=== PATIENT | female | born 1940 | race Caucasian/White ===

== ENCOUNTER 2019-11-15 18:21 | Emergency (ER) | payer MEDICARE, OTHER ==
--- NOTE | 2019-11-15 18:48 | EDM.PDOC ---
ED HPI GENERAL MEDICAL PROBLEM - General Chief Complaint: General Stated Complaint: ER Time Seen by Provider: 11/15/19 18:35 Source of Information: Reports: Patient, Halfway Records History Limitations: Reports: No Limitations - History of Present Illness INITIAL COMMENTS - FREE TEXT/NARRATIVE: Patient presents to ER with complaints of right flank pain. STarted 2 days ago and has progressively been worsening. She reports has been receiving Tylenol for discomfort but not getting much relief for that. Had low grade temp. Has mild nausea, small emesis. Did eat earlier today. Denies chest pain, shortness of breath. No constipation. Had loose stools yesterday. Denies history of kidney stones. Does have history of UTIs. Has been at the [facility] since last fall due to weakness. Onset: Gradual Duration: Day(s): Location: Reports: Abdomen, Back Quality: Reports: Ache Severity: Severe Improves with: Reports: None Associated Symptoms: Reports: Fever/Chills, Nausea/Vomiting. Denies: Confusion , Chest Pain, Cough, Loss of Appetite, Shortness of Breath Posterior Back Pain Score (Numeric/FACES): 8 - Related Data Allergies Allergy/AdvReac Type Severity Reaction Status Date / Time atorvastatin [From Lipitor] Allergy Cannot Verified 11/15/19 18:29 Remember Penicillins Allergy Cannot Verified 11/15/19 18:29 Remember rosuvastatin [From Crestor] Allergy Cannot Verified 11/15/19 18:29 Remember Home Meds: Home Meds Aspirin 81 mg PO DAILY 05/18/19 [History] Insulin Aspart [NovoLOG] 300 unit SQ ASDIRECTED PRN 05/18/19 [History] Insulin Degludec [Tresiba] 75 unit SQ DAILY 05/18/19 [History] Levothyroxine 125 mcg PO ACBREAKFAST 05/18/19 [History] Loperamide HCl [Anti-Diarrheal] 2 mg PO ASDIRECTED PRN 05/18/19 [History] Losartan Potassium 100 mg PO DAILY 05/18/19 [History] Multivitamin [Multi-Vitamin Daily] 1 each PO DAILY 05/18/19 [History] Omeprazole 20 mg PO DAILY 05/18/19 [History] Pravastatin [Pravachol] 40 mg PO DAILY 05/18/19 [History] Sertraline HCl 100 mg PO DAILY 05/18/19 [History] guaiFENesin [Cough Syrup] 10 ml PO Q4H PRN 05/18/19 [History] metFORMIN HCl [Metformin HCl] 500 mg PO DAILY 05/18/19 [History] Past Medical History HEENT History: Reports: Macular Degeneration Cardiovascular History: Reports: High Cholesterol, Hypertension Gastrointestinal History: Reports: GERD Musculoskeletal History: Reports: Other (See Below) Other Musculoskeletal History: Patient states that she has had both hips replaced in the past. She wears a brace to the left lower legs for support from having a stroke 1 year ago. Neurological History: Reports: CVA Psychiatric History: Reports: Anxiety, Depression Endocrine/Metabolic History: Reports: Diabetes, Type II, Hypothyroidism - Past Surgical History Musculoskeletal Surgical History: Reports: Hip Replacement Social & Family History - Family History Family Medical History: Noncontributory - Tobacco Use Smoking Status *Q: Never Smoker ED ROS GENERAL - Review of Systems Review Of Systems: See Below Constitutional: Reports: Fever, Chills, Malaise, Weakness, Fatigue HEENT: Reports: No Symptoms Respiratory: Denies: Shortness of Breath, Cough Cardiovascular: Denies: Chest Pain, Edema, Lightheadedness Endocrine: Reports: Fatigue GI/Abdominal: Reports: Abdominal Pain (flank pain), Diarrhea, Nausea. Denies: Constipation, Vomiting : Reports: Dysuria Musculoskeletal: Reports: No Symptoms Skin: Reports: No Symptoms Neurological: Reports: Weakness ED EXAM, GENERAL - Physical Exam Exam: See Below Exam Limited By: No Limitations General Appearance: Alert, WD/WN, No Apparent Distress Ears: Normal External Exam, Normal TMs Nose: Normal Inspection, Normal Mucosa, No Blood Throat/Mouth: Normal Inspection, Normal Oropharynx Head: Normocephalic Neck: Normal Inspection, Supple, Non-Tender Respiratory/Chest: No Respiratory Distress, Lungs Clear, Normal Breath Sounds Cardiovascular: Tachycardia GI/Abdominal: Normal Bowel Sounds, Soft, Tender (RLQ) Back Exam: CVA Tenderness (R) Neurological: Alert, Oriented Skin Exam: Warm, Dry Course - Vital Signs Last Recorded V/S: Last Vital Signs Temp 99.7 F 11/15/19 18:30 Pulse 109 H 11/15/19 20:21 Resp 16 11/15/19 20:21 BP 147/83 H 11/15/19 20:29 Pulse Ox 94 L 11/15/19 20:29 - Orders/Labs/Meds Orders: Active Orders 24 hr Category Date Time Status CULTURE URINE [RM] Stat Lab 11/15/19 19:04 Received Sodium Chloride 0.9% [Normal Saline] 500 ml Med 11/15/19 19:46 Active IV ASDIRECTED Medication Orders Sodium Chloride (Normal Saline) 500 mls @ 200 mls/hr IV ASDIRECTED JERALD Labs: Laboratory Tests 11/15/19 11/15/19 11/15/19 Range/Units 18:40 18:40 19:04 WBC 14.7 H (4.0-10.0) x10^3/uL RBC 4.24 (4.00-5.50) x10^6/uL Hgb 11.8 L (12.0-16.0) g/dL Hct 35.5 (33.0-47.0) % MCV 83.7 (78.0-93.0) fL MCH 27.8 (26.0-32.0) pg MCHC 33.2 (32.0-36.0) g/dL RDW Coeff of Radha 16.2 H (10.0-15.0) % Plt Count 205 (130-400) x10^3/uL Add Manual Diff Yes Neutrophils % (Manual) 85 H (50-80) % Band Neutrophils % 6 (0-6) % Lymphocytes % (Manual) 4 L (25-50) % Monocytes % (Manual) 5 (2-11) % Platelet Estimate Adequate Sodium 141 (136-145) mmol/L Potassium 4.3 (3.5-5.1) mmol/L Chloride 102 (98-107) mmol/L Carbon Dioxide 23 (21-32) mmol/L Anion Gap 20.3 H (10-20) mmol/L BUN 40 H (7-18) mg/dL Creatinine 1.9 H (0.55-1.02) mg/dL Est Cr Clr Drug Dosing 24.11 mL/min Estimated GFR (MDRD) 26 Glucose 165 H (74-106) mg/dL Calcium 9.8 (8.5-10.1) mg/dL Corrected Calcium 10.20 H (8.5-10.1) mg/dL Total Bilirubin 0.9 (0.2-1.0) mg/dL AST 43 H (15-37) U/L ALT 42 (14-59) U/L Alkaline Phosphatase 160 H (46-116) U/L C-Reactive Protein 7.6 H (<=0.9) mg/dL Total Protein 8.0 (6.4-8.2) g/dL Albumin 3.5 (3.4-5.0) g/dL Globulin 4.5 Albumin/Globulin Ratio 0.78 Urine Color Yellow (YELLOW) Urine Appearance Slightly cloudy H (CLEAR) Urine pH 5.5 (5.0-8.0) Ur Specific [place] 1.020 Urine Protein 100 H (NEGATIVE) mg/dL Urine Glucose (UA) Negative (NEGATIVE) mg/dL Urine Ketones Negative (NEGATIVE) mg/dL Urine Occult Blood Moderate H (NEGATIVE) Urine Nitrite Negative (NEGATIVE) Urine Bilirubin Negative (NEGATIVE) Urine Urobilinogen 0.2 (0.2) EU/dL Ur Leukocyte Esterase Small H (NEGATIVE) U Hyaline Cast (Auto) Few Urine RBC 20-30 H (NOT SEEN) /HPF Urine WBC 10-20 H (NOT SEEN) /HPF Ur Squamous Epith Cells Few H (NEGATIVE) /HPF Urine Bacteria Moderate H (NEGATIVE) /HPF Urine Mucus Few H (NEGATIVE) /LPF Meds: Medications Generic Name Dose Route Start Last Admin Trade Name Freq PRN Reason Stop Dose Admin Sodium Chloride 500 mls @ 200 mls/hr 11/15/19 19:46 Normal Saline IV ASDIRECTED JERALD Discontinued Medications Generic Name Dose Route Start Last Admin Trade Name Freq PRN Reason Stop Dose Admin Ceftriaxone Sodium 1 gm 11/15/19 19:31 11/15/19 19:44 Rocephin IVPUSH 11/15/19 19:32 1 gm STAT ONE Administration Sodium Chloride 1,000 mls @ 200 mls/hr 11/15/19 19:45 11/15/19 19:44 Normal Saline IV 200 mls/hr ASDIRECTED [facility] Administration - Re-Assessments/Exams Free Text/Narrative Re-Assessment/Exam: 11/15/19 19:[address] Walls in regards to patient status. Recommends return to half-way with daily Rocephin. Will give first dose here and IV fluids and if stable, discharge back to the half-way. Departure - Departure Time of Disposition: 22:12 Disposition: Home, Self-Care 01 Condition: Fair Clinical Impression: Pyelonephritis - Discharge Information *PRESCRIPTION DRUG MONITORING PROGRAM REVIEWED*: No *COPY OF PRESCRIPTION DRUG MONITORING REPORT IN PATIENT RASHEED: No Instructions: Pyelonephritis, Adult Referrals: PCP,None [Primary Care Provider] - Forms: ED Department Discharge Additional Instructions: 1. Push fluids 2. Tylenol as needed for discomfort 3. Rocephin 1 gm IM daily for 4 more days 4. Follow up with primary care provider if persisting concerns or changes. Sepsis Event Note - Evaluation Sepsis Screening Result: No Definite Risk - Focused Exam Vital Signs: Vital Signs Temp Pulse Resp BP Pulse Ox 11/15/19 20:29 147/83 H 94 L 11/15/19 20:21 109 H 16 135/80 94 L 11/15/19 18:30 99.7 F 107 H 18 176/84 H 94 L Date Exam was Performed: 11/15/19 Time Exam was Performed: 22:10 - My Orders Last 24 Hours: My Active Orders 11/15/19 19:04 CULTURE URINE [RM] Stat 11/15/19 19:46 Sodium Chloride 0.9% [Normal Saline] 500 ml IV ASDIRECTED - Assessment/Plan Last 24 Hours: My Active Orders 11/15/19 19:04 CULTURE URINE [RM] Stat 11/15/19 19:46 Sodium Chloride 0.9% [Normal Saline] 500 ml IV ASDIRECTED
[2019-11-15 19:26] LABS: ANION GAP 20.3 mmol/L (10-20)
[2019-11-15] MEDS ORDERED: cefTRIAXone 1 GM Vial IVPUSH ONE (19:31)
[2019-11-15] MEDS ORDERED: Sodium Chloride 0.9% 1,000 ML IV SCH (19:45)
[2019-11-15] MEDS ORDERED: Sodium Chloride 0.9% 500 ML IV SCH (19:46)
== END 2019-11-15 21:35 | disposition home or self-care (01) ==
LOC: VM.ED 18:21
DX: N12 Tubulo-interstitial nephritis, not specified as acute or chronic (principal); I10 Essential (primary) hypertension; K21.9 Gastro-esophageal reflux disease without esophagitis; F41.9 Anxiety disorder, unspecified; F32.9 Major depressive disorder, single episode, unspecified; E11.9 Type 2 diabetes mellitus without complications; E03.9 Hypothyroidism, unspecified; E78.00 Pure hypercholesterolemia, unspecified; Z86.73 Personal history of transient ischemic attack (TIA), and cerebral infarction without residual deficits; Z88.8 Allergy status to other drugs, medicaments and biological substances; Z79.82 Long term (current) use of aspirin; Z79.4 Long term (current) use of insulin; Z79.899 Other long term (current) drug therapy
CPT/HCPCS: 80053; 81001; 85025; 86140; 87086; 87088; 87186; 96360; 96361; 99284-25; 99284-GF; J0696; J7030

== ENCOUNTER 2020-05-08 10:23 | Inpatient (IN) | payer MEDICARE, OTHER ==
--- NOTE | 2020-05-08 11:08 | EDM.PDOC ---
ED HPI GENERAL MEDICAL PROBLEM - General Chief Complaint: General Stated Complaint: SOB, lethargy Time Seen by Provider: 05/08/20 10:23 Source of Information: Reports: Patient History Limitations: Reports: No Limitations - History of Present Illness INITIAL COMMENTS - FREE TEXT/NARRATIVE: Patient comes into the emergency department by EMS with concerns of shortness of breath, lethargy, and on responsive episode according to [facility] staff. Patient is a resident of the local [place] [facility] and did come back Covid19+ today due to exposure of her roommate. senior living staff state that she has decrease in responsiveness throughout the morning to the point that she was considered unresponsive to the staff. EMS state that the patient was able to answer questions appropriately but does seem more lethargic in nature. Patient states that she has been short of breath today and has had more coughing. Patient also states that she has body aches throughout but denies any chest pain, vision changes, abdominal pain, genitourinary concerns, or peripheral edema. It is unknown if the patient had any medications prior to arrival to help with her distress. EMS did attempt an IV without success prior to arrival. Onset: Gradual Quality: Reports: Other Severity: Severe Improves with: Reports: None Worsens with: Reports: None Associated Symptoms: Reports: Cough, Fever/Chills, Headaches, Loss of Appetite, Malaise, Weakness - Related Data Allergies Allergy/AdvReac Type Severity Reaction Status Date / Time atorvastatin [From Lipitor] Allergy Cannot Verified 05/08/20 11:05 Remember Penicillins Allergy Cannot Verified 05/08/20 11:05 Remember rosuvastatin [From Crestor] Allergy Cannot Verified 05/08/20 11:05 Remember Home Meds: Home Meds Aspirin 81 mg PO DAILY 05/18/19 [History] Insulin Aspart [NovoLOG] 300 unit SQ ASDIRECTED PRN 05/18/19 [History] Insulin Degludec [Tresiba] 75 unit SQ DAILY 05/18/19 [History] Levothyroxine 125 mcg PO ACBREAKFAST 05/18/19 [History] Loperamide HCl [Anti-Diarrheal] 2 mg PO ASDIRECTED PRN 05/18/19 [History] Losartan Potassium 100 mg PO DAILY 05/18/19 [History] Multivitamin [Multi-Vitamin Daily] 1 each PO DAILY 05/18/19 [History] Omeprazole 20 mg PO DAILY 05/18/19 [History] Pravastatin [Pravachol] 40 mg PO DAILY 05/18/19 [History] Sertraline HCl 100 mg PO DAILY 05/18/19 [History] guaiFENesin [Cough Syrup] 10 ml PO Q4H PRN 05/18/19 [History] metFORMIN HCl [Metformin HCl] 500 mg PO DAILY 05/18/19 [History] Past Medical History HEENT History: Reports: Macular Degeneration Cardiovascular History: Reports: High Cholesterol, Hypertension Gastrointestinal History: Reports: GERD Musculoskeletal History: Reports: Other (See Below) Other Musculoskeletal History: Patient states that she has had both hips replaced in the past. She wears a brace to the left lower legs for support from having a stroke 1 year ago. Neurological History: Reports: CVA Psychiatric History: Reports: Anxiety, Depression Endocrine/Metabolic History: Reports: Diabetes, Type II, Hypothyroidism - Past Surgical History Musculoskeletal Surgical History: Reports: Hip Replacement Social & Family History - Family History Family Medical History: Noncontributory ED ROS GENERAL - Review of Systems Review Of Systems: Comprehensive ROS is negative, except as noted in HPI. Constitutional: Reports: Fever, Chills, Malaise, Weakness, Fatigue, Decreased Appetite HEENT: Reports: No Symptoms Respiratory: Reports: Shortness of Breath Cardiovascular: Reports: Dyspnea on Exertion Endocrine: Reports: Fatigue GI/Abdominal: Reports: No Symptoms : Reports: No Symptoms Musculoskeletal: Reports: No Symptoms Skin: Reports: No Symptoms Neurological: Reports: No Symptoms Psychiatric: Reports: No Symptoms Hematologic/Lymphatic: Reports: No Symptoms Immunologic: Reports: No Symptoms ED EXAM, GENERAL - Physical Exam Exam: See Below Exam Limited By: No Limitations General Appearance: Alert, Moderate Distress Eye Exam: Bilateral Eye: EOMI, PERRL Throat/Mouth: Normal Inspection, Normal Lips, Normal Teeth, No Airway Compromise Head: Atraumatic, Normocephalic Neck: Normal Inspection, Supple, Non-Tender, Full Range of Motion Respiratory/Chest: No Respiratory Distress, Lungs Clear, Normal Breath Sounds, No Accessory Muscle Use, Chest Non-Tender Cardiovascular: Normal Peripheral Pulses, No Edema, Tachycardia Peripheral Pulses: 4+: Radial (L), Radial (R) GI/Abdominal: Normal Bowel Sounds, Soft, Non-Tender, No Abnormal Bruit, No Mass Back Exam: Normal Inspection, Full Range of Motion Extremities: Normal Inspection, Normal Range of Motion, Non-Tender, Normal Capillary Refill Neurological: Alert, Oriented, Normal Gait Psychiatric: Normal Affect, Normal Mood Skin Exam: Warm, Dry, Intact, Normal Color Course - Vital Signs Last Recorded V/S: Last Vital Signs Temp 36.6 C 05/08/20 10:25 Pulse 145 H 05/08/20 10:25 Resp 28 H 05/08/20 10:25 BP 106/57 L 05/08/20 10:25 Pulse Ox 95 05/08/20 10:25 - Orders/Labs/Meds Orders: Active Orders 24 hr Category Date Time Status Admission Status [Patient Status] [ADT] Routine ADT 05/08/20 11:31 Ordered EKG Documentation Completion [RC] STAT Care 05/08/20 10:46 Active CBC WITH AUTO DIFF [HEME] Stat Lab 05/08/20 08:40 Received COMPREHENSIVE METABOLIC PN,CMP [CHEM] Stat Lab 05/08/20 08:40 Received CULTURE BLOOD [BC] Stat Lab 05/08/20 08:40 Received INR,PT,PROTHROMBIN TIME [COAG] Stat Lab 05/08/20 08:40 Received PRO B-TYPE NATRIUR PEPT,BNPPRO [CHEM] Stat Lab 05/08/20 08:40 Received PROCALCITONIN [REF] Stat Lab 05/08/20 08:40 Received TROPONIN I [CHEM] Stat Lab 05/08/20 08:40 Received Sodium Chloride 0.9% [Normal Saline] 1,000 ml Med 05/08/20 11:21 Active IV ONETIME Sodium Chloride 0.9% [Saline Flush] Med 05/08/20 10:46 Active 10 ml FLUSH ASDIRECTED PRN Blood Culture x2 Reflex Set [OM.PC] Stat Oth 05/08/20 10:46 Ordered Peripheral IV Insertion Adult [OM.PC] Stat Oth 05/08/20 10:46 Ordered Medication Orders Sodium Chloride (Normal Saline) 1,000 mls @ 1,000 mls/hr IV ONETIME ONE Stop: 05/08/20 12:20 Sodium Chloride (Saline Flush) 10 ml FLUSH ASDIRECTED PRN PRN Reason: Keep Vein Open Labs: Laboratory Tests 05/08/20 Range/Units 08:40 Lactic Acid 7.5 H* (0.4-2.0) mmol/L Meds: Medications Generic Name Dose Route Start Last Admin Trade Name Freq PRN Reason Stop Dose Admin Sodium Chloride 1,000 mls @ 1,000 mls/hr 05/08/20 11:21 Normal Saline IV 05/08/20 12:20 ONETIME ONE Sodium Chloride 10 ml 05/08/20 10:46 Saline Flush FLUSH ASDIRECTED PRN Keep Vein Open Discontinued Medications Generic Name Dose Route Start Last Admin Trade Name Freq PRN Reason Stop Dose Admin Ceftriaxone Sodium 1 gm 05/08/20 11:20 Rocephin IVPUSH 05/08/20 11:21 ONETIME ONE Departure - Departure Time of Disposition: 11:40 Disposition: Admitted As Inpatient 68 Condition: Poor Clinical Impression: COVID-19, Respiratory distress, Respiratory failure Pneumonia Qualifiers: Pneumonia type: due to unspecified organism Laterality: unspecified laterality Lung location: unspecified part of lung Qualified Code(s): J18.9 - Pneumonia, unspecified organism Sepsis Qualifiers: Sepsis type: sepsis due to unspecified organism Sepsis acute organ dysfunction status: with acute organ dysfunction Severe sepsis acute organ dysfunction type: unspecified Severe sepsis shock status: without septic shock Qualified Code(s): A41.9 - Sepsis, unspecified organism; R65.20 - Severe sepsis without septic shock - Discharge Information *PRESCRIPTION DRUG MONITORING PROGRAM REVIEWED*: Not Applicable *COPY OF PRESCRIPTION DRUG MONITORING REPORT IN PATIENT RASHEED: Not Applicable Forms: ED Department Discharge Sepsis Event Note (ED) - Evaluation Sepsis Screening Result: No Definite Risk - Focused Exam Vital Signs: Vital Signs Temp Pulse Resp BP Pulse Ox 05/08/20 10:25 36.6 C 145 H 28 H 106/57 L 95 - My Orders Last 24 Hours: My Active Orders 05/08/20 08:40 CBC WITH AUTO DIFF [HEME] Stat COMPREHENSIVE METABOLIC PN,CMP [CHEM] Stat CULTURE BLOOD [BC] Stat INR,PT,PROTHROMBIN TIME [COAG] Stat PRO B-TYPE NATRIUR PEPT,BNPPRO [CHEM] Stat PROCALCITONIN [REF] Stat TROPONIN I [CHEM] Stat 05/08/20 10:46 EKG Documentation Completion [RC] STAT Sodium Chloride 0.9% [Saline Flush] 10 ml FLUSH ASDIRECTED PRN Blood Culture x2 Reflex Set [OM.PC] Stat Peripheral IV Insertion Adult [OM.PC] Stat 05/08/20 11:21 Sodium Chloride 0.9% [Normal Saline] 1,000 ml IV ONETIME 05/08/20 11:31 Admission Status [Patient Status] [ADT] Routine - Assessment/Plan Last 24 Hours: My Active Orders 05/08/20 08:40 CBC WITH AUTO DIFF [HEME] Stat COMPREHENSIVE METABOLIC PN,CMP [CHEM] Stat CULTURE BLOOD [BC] Stat INR,PT,PROTHROMBIN TIME [COAG] Stat PRO B-TYPE NATRIUR PEPT,BNPPRO [CHEM] Stat PROCALCITONIN [REF] Stat TROPONIN I [CHEM] Stat 05/08/20 10:46 EKG Documentation Completion [RC] STAT Sodium Chloride 0.9% [Saline Flush] 10 ml FLUSH ASDIRECTED PRN Blood Culture x2 Reflex Set [OM.PC] Stat Peripheral IV Insertion Adult [OM.PC] Stat 05/08/20 11:21 Sodium Chloride 0.9% [Normal Saline] 1,000 ml IV ONETIME 05/08/20 11:31 Admission Status [Patient Status] [ADT] Routine Assessment:: 1. SOB 2. cough 3. Covid-19 + 4. pneumonia 5. Acute kidney failure/injury Plan: 1. Sepsis protocol initiated and followed 2. Labs completed in the ER. Results reviewed with the patient 3. Blood cultures completed 4. IV initiated in the emergency department 5. IV fluids provided 6. EKG completed in ER. 7. Rocephin 1gm given 8. O2 to keep oxygen saturations up 9. Covid-19 positive 10. Contacted Chay Costello for hospital admit to acute care for further medical management. 11. Patient and nursing staff was updated regarding the plan of care 11. Patient and family are agreeable to the above plan of care 12. All questions and concerns were addressed with the patient and family prior to discharge
--- NOTE | 2020-05-08 11:08 | CR ---
[id number] RAD/RAD Chest PA or AP 1V EXAM: FRONTAL CHEST INDICATION: COVID 19, SHORTNESS OF BREATH. COMPARISON: None. DISCUSSION: The lungs are hypoinflated with mild basilar atelectasis. No infiltrates are identified, but body habitus and portable technique mildly limit sensitivity. Borderline heart size without evidence of congestive heart failure. Tortuous thoracic aorta. Mild convex right curvature centered in the midthoracic spine. IMPRESSION: 1. Low lung volumes. Elijah San MD 05/08/20 [id number] Thank you for allowing us to participate in the care of your patient.
[2020-05-08] MEDS ORDERED: cefTRIAXone 1 GM Vial IVPUSH ONE (11:20)
[2020-05-08] MEDS ORDERED: Sodium Chloride 0.9% 1,000 ML IV ONE (11:21)
[2020-05-08 11:27] LABS: CHLORIDE,CL 103 mmol/L (98-107); SODIUM,NA 139 mmol/L (136-145)
[2020-05-08] MEDS ORDERED: Zinc (Zinc Gluconate) 50 MG Tab PO SCH (13:30)
[2020-05-08] MEDS ORDERED: Ascorbic Acid 500 MG Tab PO SCH (13:30)
[2020-05-08] MEDS ORDERED: Sodium Chloride 0.9% 1,000 ML IV SCH (13:30)
[2020-05-08] MEDS ORDERED: Cholecalciferol (Vitamin D3) 25 MCG Tab PO SCH (13:30)
[2020-05-08] MEDS ORDERED: Dexamethasone 4 MG/ML SDV IVPUSH SCH (13:30)
[2020-05-08] MEDS ORDERED: Acetaminophen 325 MG Tab PO PRN (13:31)
[2020-05-08] MEDS: Sodium Chloride 0.9% 10 ML Syringe FLUSH PRN (14:02)
[2020-05-08] MEDS ORDERED: Acetaminophen 650 MG Supp RECTAL PRN (14:04)
[2020-05-08] MEDS: Acetaminophen 650 MG Supp RECTAL PRN (14:30)
[2020-05-08] MEDS ORDERED: Lactated Ringers 1,000 ML IV SCH (14:30)
[2020-05-08] MEDS ORDERED: Enoxaparin 30 MG/0.3 ML Syringe SUBCUT SCH (15:00)
--- NOTE | 2020-05-08 15:21 | PCM.SN.2 ---
- Free Text/Narrative Note: 14:58 Called and spoke with patient's son, Layo regarding current status of patient. Decision was made to place patient on comfort cares only. Nursing staff made aware. Patient's son will be allow to see patient while in the hospital.
[2020-05-08] MEDS ORDERED: Lidocaine 2% Viscous Solution 15 ML Cup PO PRN (15:22)
--- NOTE | 2020-05-08 16:43 | HP ---
CHIEF COMPLAINT: Lethargy. HISTORY OF PRESENT ILLNESS: A 80-year-old female patient was brought to the emergency room via EMS from the local half-way for lethargy, fever, and altered mental status. According to the half-way staff, the patient was screened for COVID-19, which was positive this morning. The patient had a temperature around 99. The patient's blood pressure was normal. The patient also had normal oxygen saturation. The half-way staff did contact the patient's son who requested for the patient to be seen in a local emergency room. Upon arrival to the emergency room, the patient was fairly lethargic but able to answer questions. The patient's temperature in the emergency room was 97.9. The patient was tachycardic at 145. The patient's blood pressure was 106/57. Respiratory rate of 28. Oxygen saturation 95% on 2 L. Laboratory work showed a creatinine of 5.4 with a BUN of 49. Lactic acid 7.5. The patient's BNP was elevated at 3367. White blood cell count was normal at 6.3. C-reactive protein was not checked in the emergency room. Given the patient's condition, decision was made to admit the patient to acute. PAST MEDICAL HISTORY: 1. Mixed hyperlipidemia. 2. Hypertension. 3. GERD. 4. CVA. 5. Anxiety. 6. Depression. 7. Diabetes type 2. 8. Hypothyroidism. PAST SURGICAL HISTORY: Bilateral hip replacements. FAMILY HISTORY: Noncontributory. SOCIAL HISTORY: The patient is a current resident at the [facility]. The patient does not smoke cigarettes. The patient is . MEDICATIONS: 1. Aspirin 81 mg 1 tablet p.o. daily. 2. NovoLog per sliding scale. 3. Tresiba 75 units subcutaneous daily. 4. Levothyroxine 125 mcg 1 tablet p.o. daily. 5. Loperamide 2 mg p.o. as directed. 6. Losartan 100 mg 1 tablet p.o. daily. 7. Multivitamin 1 tablet p.o. daily. 8. Omeprazole 20 mg 1 tablet p.o. daily. 9. Pravastatin 40 mg 1 tablet p.o. daily. 10.Sertraline 100 mg 1 tablet p.o. daily. 11.Guaifenesin 10 mL p.o. every 4 hours as needed. 12.Metformin 500 mg 1 tablet p.o. daily. ALLERGIES: 1. Atorvastatin. 2. Penicillins. 3. Rosuvastatin. REVIEW OF SYSTEMS: Unable to obtain due to patient's condition. PHYSICAL EXAMINATION: General: The patient is obtunded, patient is arousable to noxious stimuli. Skin: Cool, dry, and intact. Respiratory: The patient is tachypneic. Lung sounds are decreased throughout. Cardiovascular: The patient is tachycardic. Regular rate. No murmurs. Neurological: The patient is obtunded. The patient does open eyes to noxious stimuli. Abdomen: Soft, nontender. Bowel sounds are hypoactive x4. LABORATORY STUDIES: 1. CBC: White blood cell count 6.3, hemoglobin 12.1, hematocrit 37.8, and platelets are 206,000. 2. PT is 10.9, INR is 1.0. 3. CMP: Sodium 139, potassium 4.0, chloride 103, CO2 was 14, anion gap of 16, BUN 49, creatinine 5.4, GFR 8, glucose 141, calcium 9.7, bilirubin 1.2, AST 56, ALT 35, alkaline phosphatase 180, and protein is 7.9. 4. Lactic acid 7.5. 5. BNP 3367. ASSESSMENT: 1. Septic shock secondary to COVID-19 infection. 2. Acute renal failure. 3. Acute respiratory failure with hypoxia secondary to COVID-19 infection. 4. Diabetes type 2. 5. Hypertension. 6. Hyperlipidemia. 7. Hypothyroidism. 8. History of cerebrovascular accident. PLAN: The patient will be admitted to acute cares. The patient does not qualify for remdesivir given her GFR. The patient will be started on dexamethasone 6 mg IV every 24 hours. We will have Pharmacy dose the Lovenox. The patient is a DNR. We will continue home medications the same as able. Prognosis is very poor for this patient. We will fluid resuscitate for the septic shock, keeping in mind with COVID-19 fluid resuscitation is contraindicated. We will start vitamins. The patient is in guarded condition. The patient did receive Rocephin in the emergency room for her sepsis; however, chest x-ray appears normal without pneumonia. Sepsis is believed to be from the COVID. May consider empirically starting antibiotics but we will check additional laboratory work. TB: 05/08/2020 15:19:48 MODL: 05/08/2020 16:37:19 /[id number]
[2020-05-08] MEDS: LORazepam 2 MG/ML SDV IV PRN (21:23)
[2020-05-08] MEDS: Morphine Oral Concentrate 20 MG/ML 30 ML Bottle PO PRN (21:23)
[2020-05-09] MEDS: LORazepam 2 MG/ML SDV IV PRN ×2 (02:46→10:27)
[2020-05-09] MEDS: Morphine Oral Concentrate 20 MG/ML 30 ML Bottle PO PRN ×6 (02:54→23:51)
[2020-05-09] MEDS: Sodium Chloride 0.9% 10 ML Syringe FLUSH PRN (10:29)
[2020-05-09] MEDS: Acetaminophen 650 MG Supp RECTAL PRN (10:30)
[2020-05-09] MEDS: Atropine 1% Ophth Soln 5 ML BOTTLE SL PRN (12:42)
[2020-05-10] MEDS: Morphine Oral Concentrate 20 MG/ML 30 ML Bottle PO PRN ×2 (02:19→05:52)
--- NOTE | 2020-05-10 07:52 | PN ---
Progress Note for ILEANA LUCERO Date: 05/09/2020 Room #: VM.205 CHIEF COMPLAINT: Lethargy, altered mental status. SUBJECTIVE: Hospital day #2 for a 80-year-old female patient with a past medical history of mixed hyperlipidemia, hypertension, GERD, CVA, anxiety, depression, diabetes type 2, hypothyroidism, was admitted to the acute care floor yesterday at [facility] for septic shock secondary to COVID-19 infection, acute renal failure, acute respiratory failure with hypoxia secondary to COVID-19. Long discussion was held with the son yesterday and decisions were made to make the patient comfort cares only. The patient's son does not want any more treatment and would like his mother made comfortable. The patient is obtunded. The patient is tachypneic. The patient does not respond to noxious stimuli. The patient has been resting comfortably. The patient is currently on morphine and Ativan as needed. REVIEW OF SYSTEMS: Unable to obtain due to acuity of the patient. PHYSICAL EXAMINATION: Vital Signs: Temperature 99.1, pulse 112, blood pressure is 69/41, respirations 44, oxygen saturation 95%. Skin: Cool, intact, dry. Respiratory: Tachypnea, scattered crackles, diminished throughout. Cardiovascular: Tachycardia, regular rhythm. No murmur. Abdomen: Soft. Bowel sounds are hypoactive x4. Neurological: The patient is obtunded. The patient is not responsive. The patient does not respond to noxious stimuli. LABORATORY WORK: None. ASSESSMENT: 1. Septic shock secondary to COVID-19 infection. 2. Acute respiratory failure with hypoxia secondary to COVID-19 infection. 3. Acute renal failure. 4. Comfort cares. 5. Diabetes type 2. 6. Hypertension. 7. Hyperlipidemia. 8. Hypothyroidism. 9. History of cerebrovascular accident. PLAN: The patient will continue on acute status with comfort cares. Continue with comfort care medications with morphine and Ativan. The patient's son was updated on patient's status today, all questions were answered. We will continue to monitor. TB: 05/09/2020 11:28:26 MODL: 05/09/2020 12:05:56 /[id number]
--- NOTE | 2020-05-10 15:24 | PN ---
Progress Note for ILEANA LUCERO Date: 05/10/2020 Room #: VM.205 SUBJECTIVE: This is hospital day #3 on a 80-year-old admitted with an acute COVID-19 infection with severe hypotension, blood pressures in the 60s to 70s, acute renal failure, creatinine up to 5, and requirement of oxygen. Decision was made by the provider and patient for full comfort cares. She has not required a lot of comfort measures, but did get a dose of oral morphine this morning. I was not able to reach her son, but when staff got a hold of him, he did not wish to have her transferred back to the [facility] on hospice or comfort cares. She is not visibly short of breath. She is resting comfortably. When I ask her if she was in any pain, she said no, but was not able to answer more questions with words other than yes or no. She has not had any intake for food. She only had 300 of urine out despite having a Santos in and getting 1200 of IV fluids. She does not appear to be in any pain. OBJECTIVE: Vital Signs: Her T-max was 103 that was at 10:30 yesterday morning. Current temperature is 99.1, O2 of 95% on 2.5 L, last blood pressure check was 69/41, and pulse of 112. General: She is in no acute distress. Heart: Regular rate and rhythm. S1, S2 with tachycardia. Lungs: Her lung sounds are decreased throughout without any crackles or wheezes. Abdomen: Nondistended. Positive bowel sounds. Soft, nontender. Extremities: Warm and dry. No edema. Mental Status: She is unable to answer orientation questions. LABORATORY DATA: Lab work; none has been repeated since admission. Her lactic was 7.5. ASSESSMENT: 1. Septic shock with acute renal failure due to a COVID-19 infection. 2. Acute hypoxic respiratory failure secondary to COVID-19 infection. 3. Ztntl-hm-scqnwgk renal failure. Baseline creatinine is 1.6. 4. Uncontrolled diabetes. Last A1c 8.9. 5. History of cerebrovascular accident with left hemiplegia. 6. Essential hypertension now with hypotension. 7. Anxiety, gastroesophageal reflux disease, hypothyroidism, depression. 8. Comfort cares. PLAN: The patient will continue on comfort cares here since her family did decline to have her transferred back to the [facility]. She does have comfort medications like morphine available, Ativan, and medication for secretions. No further IV fluids as indicated. We will do vitals p.r.n., but mainly checking fevers to give her Tylenol for comfort. MKA: 05/10/2020 15:03:31 MODL: 05/10/2020 15:18:59 /[id number]
[2020-05-11 10:44] LABS: ANION GAP 23.9 mmol/L (10-20)
--- NOTE | 2020-05-11 10:45 | PN ---
Progress Note for ILEANA LUCERO Date: 05/11/2020 Room #: VM.205 SUBJECTIVE: This is hospital day #4 on a 80-year-old admitted with septic shock due to COVID-19 infection, but blood cultures did come up positive today for E. coli. Suspected source is urine, so I have checked a UA. The patient is more alert today. She actually wants to eat something. When asking her if she had any pain with urination, she said a little. The patient is actually denying any other pain. She denies any cough. She is not short of breath. She is able to open her eyes and answer some questions. When asked if she wants to try antibiotics to get better, she did say yes. Her son was then contacted who agreed with the plan of care. She did initially get IV Rocephin and 2 L of fluid in the ER. Unfortunately, she only had about 700 mL of urine out, but more up to 400 yesterday than the day before. Oxygen requirements have remained low at 2.5 L. Blood pressures initially were around 68 systolic. OBJECTIVE: Vital Signs: This morning, she is 97.6, her T-max was last on 05/09/2020, pulse 77, blood pressure 94/56, respiratory rate 18, O2 of 97% on 2.5 L. General: She is in no acute distress. Heart: Regular rate and rhythm with tachycardia. Lungs: Sounds are clear to auscultation bilaterally without crackles or wheezes. Abdomen: Positive bowel sounds. Soft, nondistended, nontender. Extremities: Warm and dry. No edema. Mental Status: She is alert, but unable to answer the questions fully. She seems to be aware though she is in the hospital. Genitourinary: Santos in place. Her urine is cassy-colored. No blood. LABORATORY DATA: No lab work yet today, but it has been ordered. ASSESSMENT: 1. Septic shock with acute renal failure due to Escherichia coli bacteremia, likely source is the urine. 2. Escherichia coli bacteremia. We will check a UA. We will restart IV Rocephin 1 g daily, last dose and only dose was on 05/08/2020. 3. Imfgv-eg-egvsmrm renal failure. Creatinine up to 5, baseline 1.6. We will repeat creatinine today. 4. COVID-19 infection. The patient is currently just requiring small amounts of oxygen. Her sats are 97%. No dexamethasone is indicated. She is actually not on any treatments for COVID-19, but we will restart her vitamins today. 5. Essential hypertension, now with hypotension, all medications on hold. 6. History of cerebrovascular accident with left hemiplegia. 7. Uncontrolled diabetes. Last A1c 8.9. We will institute b.i.d. Accu-Cheks. 8. Anxiety. 9. Gastroesophageal reflux disease. 10.Hypothyroidism. 11.Depression. 12.Palliative care. PLAN: The patient will be restarted on IV Rocephin. I will restart IV fluids, normal saline at 150 an hour. We will get lab work today. We will continue supportive cares. Her son is still in understanding that her condition from the COVID could worsen, but is hopeful that the gram-negative bacteremia is something that we can treat. I will hold off on any DVT prophylaxis until I see lab work. Also, the patient is a do not intubate. We also discussed that we would not transfer her for dialysis and her son was understanding of that. MKA: 05/11/2020 10:21:52 MODL: 05/11/2020 10:40:17 /[id number]
[2020-05-11] MEDS: Cholecalciferol (Vitamin D3) 10 MCG Tab PO SCH (10:46)
[2020-05-11] MEDS: Ascorbic Acid 500 MG Tab PO SCH ×2 (10:46→19:21)
[2020-05-11] MEDS: cefTRIAXone 1 GM Vial IVPUSH SCH (10:46)
[2020-05-11] MEDS: Zinc (Zinc Gluconate) 50 MG Tab PO SCH (10:46)
[2020-05-11] MEDS ORDERED: 50% Dextrose in Water 50 ML Syringe IV PRN (16:53)
[2020-05-11] MEDS ORDERED: Glucagon,Human Recombinant 1 MG Vial IM PRN (16:53)
[2020-05-11] MEDS: Insulin Glarg,Human.Rec.Analog 100 Unit/ML SUBCUT SCH (18:26)
[2020-05-12] MEDS: Sodium Chloride 0.9% 1,000 ML IV SCH ×3 (00:41→17:59)
[2020-05-12 08:13] LABS: ANION GAP 22.5 mmol/L (10-20)
[2020-05-12] MEDS: cefTRIAXone 1 GM Vial IVPUSH SCH (08:53)
[2020-05-12] MEDS: Ascorbic Acid 500 MG Tab PO SCH ×3 (08:54→20:31)
[2020-05-12] MEDS: Zinc (Zinc Gluconate) 50 MG Tab PO SCH (08:55)
[2020-05-12] MEDS: Cholecalciferol (Vitamin D3) 10 MCG Tab PO SCH (08:55)
[2020-05-12] MEDS: Insulin Glarg,Human.Rec.Analog 100 Unit/ML SUBCUT SCH (08:56)
--- NOTE | 2020-05-12 17:58 | PN ---
Progress Note for ILEANA LUCERO Date: 05/12/2020 Room #: VM.205 SUBJECTIVE: This is hospital day #5 on a 80-year-old admitted with septic shock due to E. coli bacteremia and a COVID-19 infection. Yesterday, the patient was changed from full comfort cares to receiving fluids and antibiotics after I discussed with her son. She is much more alert. She is trying to eat, but she is choking on thin liquids. I consulted with the detention staff who assured me that she was able to swallow without difficulty up there despite her history of stroke. She also had some left-sided weakness, now her left side is more flaccid. Yesterday, due to her level of consciousness, it was difficult to assess. She is coughing only after drinking liquids. She denies that she is short of breath. She has only been requiring 2 L of oxygen. She has been afebrile. She is denying any pain. She has a catheter in place for strict in's and out's. Her urine output has picked up with the fluids. OBJECTIVE: Vital Signs: Her temperature is 97.4; pulse 82; blood pressure 111/59; respiratory rate 16; O2 of 91 on 2 L, previous to that it was 98, next charted note later this morning was 100% on 2 L. General: She is in no acute distress. Heart: Regular rate and rhythm. S1, S2 without murmur. Lungs: Sounds are clear to auscultation bilaterally without crackles or wheezes. Abdomen: Has positive bowel sounds. Soft, nontender. Extremities: Warm and dry. No edema. Mental Status: She is alert. She is able to answer questions. She is aware she is in the hospital. Genitourinary: Her urine is yellow colored in the catheter. No blood. LABORATORY DATA: Lab work from today does show her white count normal at 9.9, hemoglobin 11, platelets down though to 26. Sodium 146, potassium 6.5, chloride 112, bicarb 18, BUN 156, creatinine 8.9, glucose 195, lactic has now normalized to less than 0.3, calcium 8.7. ASSESSMENT AND PLAN: 1. Septic shock with acute renal failure due to Escherichia coli bacteremia. 2. Escherichia coli bacteremia. UA mildly positive. So far, urine culture no growth, but she had already been on antibiotics. Rocephin initially given on 05/08 and then 05/11 and now today, 05/12. 3. Acute on chronic renal failure. Baseline creatinine 1.6. She has had a gradual improvement. She likely went into acute tubular necrosis. 4. Metabolic acidosis, likely due to renal failure. Her bicarb is improving. 5. COVID-19 infection. The patient did receive 1 dose of dexamethasone. She is not requiring any further treatment for COVID-19 other than vitamins. 6. Essential hypertension. Medications on hold due to low blood pressures. 7. History of cerebrovascular accident with left hemiplegia and now some trouble with swallowing. We will get Speech Therapy involved. We will give her thickened liquids. 8. Uncontrolled diabetes. She is on b.i.d. Accu-Cheks and her blood sugars have been between 140 and 220. She will remain on long-acting insulin at 5 units daily. We will institute meal insulin when eating better and needed for higher blood sugars over 250. 9. Anxiety, gastroesophageal reflux disease, hypothyroidism, depression, and palliative cares. 10.Severe thrombocytopenia. 11. Hyperkalemia PLAN: At this point, the patient will continue IV Rocephin for gram-negative bacteremia. We will treat with a total of 7 doses. Potentially switch her over to oral when she is more reliably taking oral intake. We will continue her IV fluids at 150 an hour and repeat lab work tomorrow. We will continue the catheter for now due to need for strict in's and out's. For DVT prophylaxis, given her comfort care status, we will hold off on any SCDs at this point. Again, the patient will continue acute cares other than fluids and Antibiotics. ABILIO: 05/12/2020 17:13:08 MODL: 05/12/2020 17:52:05 /[id number] MISHA
[2020-05-12] MEDS: Morphine Oral Concentrate 20 MG/ML 30 ML Bottle PO PRN (23:15)
[2020-05-13] MEDS: Sodium Chloride 0.9% 1,000 ML IV SCH ×2 (00:38→07:23)
[2020-05-13 07:42] LABS: ANION GAP 19.6 mmol/L (10-20)
[2020-05-13] MEDS: Cholecalciferol (Vitamin D3) 10 MCG Tab PO SCH (09:03)
[2020-05-13] MEDS: Sodium Chloride 0.9% 10 ML Syringe FLUSH PRN (09:03)
[2020-05-13] MEDS: cefTRIAXone 1 GM Vial IVPUSH SCH (09:03)
[2020-05-13] MEDS: Ascorbic Acid 500 MG Tab PO SCH ×2 (09:03→21:16)
[2020-05-13] MEDS: Zinc (Zinc Gluconate) 50 MG Tab PO SCH (09:03)
[2020-05-13] MEDS: Insulin Glarg,Human.Rec.Analog 100 Unit/ML SUBCUT SCH (09:04)
[2020-05-13] MEDS ORDERED: Sodium Chloride 0.45% 1,000 ML IV SCH (12:45)
[2020-05-13] MEDS ORDERED: Sodium Bicarbonate 8.4% 50 MEQ/50 ML Syringe IVPUSH ONE ×2 (12:56→16:34)
[2020-05-13] MEDS ORDERED: Sodium Bicarbonate 50 MEQ in Sodium Chloride 0.45% 1,000 ML IV SCH (13:15)
[2020-05-13] MEDS: Morphine Oral Concentrate 20 MG/ML 30 ML Bottle PO PRN (23:39)
[2020-05-14] MEDS ORDERED: Sodium Bicarbonate 50 MEQ in Sodium Chloride 0.45% 1,000 ML IV SCH (02:00)
--- NOTE | 2020-05-14 06:46 | PN ---
Progress Note for ILEANA LUCERO Date: 05/13/2020 Room #: VM.205 SUBJECTIVE: This is hospital day #6 for a 80-year-old admitted with septic shock due to E. coli bacteremia and a COVID-19 infection. This morning, she is still sleepy. She did not have much intake yesterday charted, but she was more alert and trying to eat. She needed assistance and was choking on thin liquids, which was new for her. She does not appear to be in any pain. The patient has not had IV morphine but did get liquid morphine yesterday. She did lose her IV access today. She was able to take her oral vitamins. She continues to only require 2 L of oxygen. OBJECTIVE: Vital Signs: Temperature is 97.9, pulse 84, blood pressure 117/64, respiratory rate 16 and O2 is 100% on 2 L. General: She is in no acute distress. Heart: Regular rate and rhythm. S1 and S2. Without murmur. Lungs: Lung sounds are clear to auscultation, bilateral, without crackles or wheezes. Abdomen: Nondistended. Positive bowel sounds. Nontender. Extremities: Warm and dry. No edema. Her left arm is flaccid. Apparently, [facility]. Mental Status: She is not able to answer questions today. LABORATORY WORK: Does show her to have a white count normal at 5.6, hemoglobin 10, and platelets 33. Sodium 150, potassium 6.6, chloride 120, bicarb 17, BUN 152, creatinine 7.3, and glucose 167. Calcium 8. ASSESSMENT: 1. Septic shock with acute renal failure due to Escherichia coli bacteremia. 2. Escherichia coli bacteremia. Urine culture was negative but done after antibiotics were started. 3. Coronavirus disease 2019 infection. The patient is on vitamins, not on dexamethasone. 4. Acute on chronic renal failure. 5. Metabolic acidosis with hyperkalemia. 6. Essential hypertension. Blood pressure is controlled off medications. 7. History of cerebrovascular accident with left hemiplegia. 8. Uncontrolled diabetes. Blood sugars are under fair control on long-acting insulin. 9. Anxiety. 10.Gastroesophageal reflux disease, hypothyroidism, depression, and palliative cares. 11.Severe thrombocytopenia without bleeding but bruising. PLAN: Continue acute cares. Change her over to one-half normal saline with 50 mEq of bicarb at 100 mL/h. Repeat lab work tomorrow. We did get an IV placed, if we lose that, we will go to subcu. If her condition fails to improve, she will go back on comfort cares. Dr. Jensen will assume care tomorrow. Continue Rocephin for a total of 7 doses. Her hospitalization was prolonged beyond the 96 hours due to her illness and the COVID 19 pandemic. There wasn't available beds for her and also her family wishes were more for comfort than aggressive cares. She was requiring IV fluids and antibiotics so was not stable to return to the [facility]. MKA: 05/13/2020 18:31:57 MODL: 05/13/2020 18:54:31 /[id number] MISHA
[2020-05-14 06:49] LABS: ANION GAP 19.8 mmol/L (10-20)
--- NOTE | 2020-05-14 08:05 | PCM.PN ---
- General Info Date of Service: 05/14/20 Subjective Update: 80 yo female hospital day #7 admitted with septic shock secondary to E. coli also with diagnosis of COVID. Patient is resting in bed and does not awake to answer questions. - Review of Systems Systems Review Comment:: unable to assess due to patient being obtunded - Patient Data Vitals - Most Recent: Last Vital Signs Temp 37.3 C 05/13/20 23:35 Pulse 95 05/13/20 23:35 Resp 20 05/13/20 23:35 BP 143/82 H 05/13/20 23:35 Pulse Ox 100 05/13/20 23:35 Weight - Most Recent: 76.657 kg I&O - Last 24 Hours: Intake & Output 05/13/20 05/14/20 05/14/20 22:59 06:59 14:59 Intake Total 1315 1037 Output Total 550 1150 Balance 765 -113 Lab Results Last 24 Hours: Laboratory Results - last 24 hr 05/13/20 05/14/20 05/14/20 Range/Units 20:54 06:05 06:20 WBC 7.7 (4.0-10.0) x10^3/uL RBC 3.44 L (4.00-5.50) x10^6/uL Hgb 9.7 L (12.0-16.0) g/dL Hct 30.9 L (33.0-47.0) % MCV 89.8 (78.0-93.0) fL MCH 28.2 (26.0-32.0) pg MCHC 31.4 L (32.0-36.0) g/dL RDW Coeff of Radha 15.7 H (10.0-15.0) % Plt Count 63 L (130-400) x10^3/uL Add Manual Diff Yes Neutrophils % (Manual) 79 (50-80) % Band Neutrophils % 11 H (0-6) % Lymphocytes % (Manual) 4 L (25-50) % Monocytes % (Manual) 3 (2-11) % Eosinophils % (Manual) 1 (0-4) % Metamyelocytes % 2 H (0) % Vacuolated Monocytes Rare Platelet Estimate Decreased L Hypochromasia 1+ slight H Anisocytosis 1+ slight H Sodium (136-145) mmol/L Potassium (3.5-5.1) mmol/L Chloride (98-107) mmol/L Carbon Dioxide (21-32) mmol/L Anion Gap (10-20) mmol/L BUN (7-18) mg/dL Creatinine (0.55-1.02) mg/dL Est Cr Clr Drug Dosing mL/min Estimated GFR (MDRD) Glucose (74-106) mg/dL POC Glucose 148 H 137 H (74-106) mg/dL Calcium (8.5-10.1) mg/dL 05/14/20 Range/Units 06:20 WBC (4.0-10.0) x10^3/uL RBC (4.00-5.50) x10^6/uL Hgb (12.0-16.0) g/dL Hct (33.0-47.0) % MCV (78.0-93.0) fL MCH (26.0-32.0) pg MCHC (32.0-36.0) g/dL RDW Coeff of Radha (10.0-15.0) % Plt Count (130-400) x10^3/uL Add Manual Diff Neutrophils % (Manual) (50-80) % Band Neutrophils % (0-6) % Lymphocytes % (Manual) (25-50) % Monocytes % (Manual) (2-11) % Eosinophils % (Manual) (0-4) % Metamyelocytes % (0) % Vacuolated Monocytes Platelet Estimate Hypochromasia Anisocytosis Sodium 153 H (136-145) mmol/L Potassium 5.8 H (3.5-5.1) mmol/L Chloride 122 H (98-107) mmol/L Carbon Dioxide 17 L (21-32) mmol/L Anion Gap 19.8 (10-20) mmol/L BUN 137 H* (7-18) mg/dL Creatinine 6.3 H* (0.55-1.02) mg/dL Est Cr Clr Drug Dosing 6.62 mL/min Estimated GFR (MDRD) 6 Glucose 138 H (74-106) mg/dL POC Glucose (74-106) mg/dL Calcium 8.5 (8.5-10.1) mg/dL Johnny Results Last 24 Hours: Microbiology 05/08/20 08:40 Aerobic Blood Culture - Final Blood - Venous Escherichia Coli Anaerobic Blood Culture - Final NO GROWTH AFTER 5 DAYS 05/11/20 11:55 Urine Culture - Final Urine, Catheterized NO GROWTH AFTER 2 DAYS Med Orders - Current: Current Medications Acetaminophen (Tylenol) 650 mg RECTAL Q4H PRN PRN Reason: Pain/Fever Last Admin: 05/09/20 10:30 Dose: 650 mg Documented by: Atropine Sulfate (Atropine 1% Ophth Soln) 0 ml SL Q2H PRN PRN Reason: Copius Secretions Last Admin: 05/09/20 12:42 Dose: 0.1 ml Documented by: Glucagon (Glucagen) 1 mg IM ASDIRECTED PRN PRN Reason: Hypoglycemia Sodium Bicarbonate 50 meq/ (Sodium Chloride) 1,050 mls @ 100 mls/hr IV ASDIRECTED JERALD Stop: 05/14/20 12:30 Last Admin: 05/14/20 02:18 Dose: 100 mls/hr Documented by: Lidocaine HCl (Xylocaine 2% Viscous) 5 ml PO Q4H PRN PRN Reason: Pain Lorazepam (Ativan) 1 mg IV Q4H PRN PRN Reason: Restlessness or Anxiety Last Admin: 05/09/20 10:27 Dose: 1 mg Documented by: Morphine Sulfate (Morphine 20 Mg/Ml Soln) 5 mg PO Q1H PRN PRN Reason: Pain (severe 7-10) Last Admin: 05/13/20 23:39 Dose: 5 mg Documented by: Sodium Chloride (Saline Flush) 10 ml FLUSH ASDIRECTED PRN PRN Reason: Keep Vein Open Last Admin: 05/13/20 09:03 Dose: 10 ml Documented by: Discontinued Medications Acetaminophen (Tylenol) 650 mg PO Q4H PRN PRN Reason: Fever Greater Than 101 Acetaminophen (Tylenol) 650 mg RECTAL Q6H PRN PRN Reason: Pain/Fever Ascorbic Acid (Vitamin C) 1,000 mg PO DAILY [facility] Last Admin: 05/08/20 14:03 Dose: Not Given Documented by: Ascorbic Acid (Vitamin C) 1,000 mg PO BID [facility] Last Admin: 05/13/20 21:16 Dose: Not Given Documented by: Ceftriaxone Sodium (Rocephin) 1 gm IVPUSH ONETIME ONE Stop: 05/08/20 11:21 Last Admin: 05/08/20 11:30 Dose: 1 gm Documented by: Ceftriaxone Sodium (Rocephin) 1 gm IVPUSH DAILY [facility] Stop: 05/16/20 23:00 Last Admin: 05/13/20 09:03 Dose: 1 gm Documented by: Cholecalciferol (Vitamin D3) 50 mcg PO DAILY [facility] Last Admin: 05/08/20 14:02 Dose: Not Given Documented by: Cholecalciferol (Vitamin D3) 10 mcg PO DAILY [facility] Last Admin: 05/13/20 09:03 Dose: 10 mcg Documented by: Dexamethasone (Decadron) 6 mg IVPUSH Q24H [facility] Last Admin: 05/08/20 13:59 Dose: 6 mg Documented by: Dextrose/Water (Dextrose 50% In Water) 50 ml IV ASDIRECTED PRN PRN Reason: Hypoglycemia Enoxaparin Sodium (Lovenox) 30 mg SUBCUT Q12H [facility] Last Admin: 05/08/20 15:27 Dose: Not Given Documented by: Sodium Chloride (Normal Saline) 1,000 mls @ 1,000 mls/hr IV ONETIME ONE Stop: 05/08/20 12:20 Last Admin: 05/08/20 11:30 Dose: 1,000 mls/hr Documented by: Sodium Chloride (Normal Saline) 1,000 mls @ 50 mls/hr IV ASDIRECTED [facility] Last Admin: 05/08/20 13:58 Dose: 50 mls/hr Documented by: Lactated Ringer's (Ringers, Lactated) 1,000 mls @ 1,000 mls/hr IV BOLUS [facility] Last Admin: 05/08/20 14:33 Dose: 1,000 mls/hr Documented by: Sodium Chloride (Normal Saline) 1,000 mls @ 150 mls/hr IV ASDIRECTED [facility] Last Admin: 05/13/20 07:23 Dose: 150 mls/hr Documented by: Sodium Chloride (Sodium Chloride 0.45%) 1,000 mls @ 100 mls/hr IV ASDIRECTED [facility] Sodium Bicarbonate 50 meq/ (Sodium Chloride) 1,050 mls @ 100 mls/hr IV .[id number] [facility] Stop: 05/13/20 23:44 Last Admin: 05/13/20 14:10 Dose: 100 mls/hr Documented by: Insulin Glargine (Lantus) 5 unit SUBCUT DAILY [facility] Last Admin: 05/13/20 09:04 Dose: 5 units Documented by: Sodium Bicarbonate (Sodium Bicarbonate 8.4%) 50 meq IVPUSH ONETIME ONE Stop: 05/13/20 12:57 Last Admin: 05/13/20 13:19 Dose: Not Given Documented by: Sodium Bicarbonate (Sodium Bicarbonate 8.4%) 50 meq IVPUSH ONETIME ONE Stop: 05/13/20 16:35 Last Admin: 05/14/20 02:18 Dose: 50 meq Documented by: Zinc Gluconate (Zinc) 200 mg PO DAILY [facility] Last Admin: 05/08/20 14:02 Dose: Not Given Documented by: Zinc Gluconate (Zinc) 200 mg PO DAILY [facility] Last Admin: 05/13/20 09:03 Dose: 200 mg Documented by: - Exam General: No Acute Distress, Obtunded HEENT: Mucous Membr. Moist/[place] Neck: Supple, Trachea Midline, No Thyromegaly. No: Lymphadenopathy Lungs: Clear to Auscultation, Normal Respiratory Effort Cardiovascular: Regular Rate, Regular Rhythm, No Murmurs GI/Abdominal Exam: Normal Bowel Sounds, Soft, Non-Tender, No Organomegaly, No Distention, No Mass Extremities: Normal Inspection, Non-Tender, Normal Capillary Refill, Pedal Edema Peripheral Pulses: 2+: Radial (L), Radial (R) Skin: Warm, Dry, Intact Sepsis Event Note - Evaluation Sepsis Screening Result: Severe Sepsis Risk - Focused Exam Vital Signs: Vital Signs Temp Pulse Resp BP Pulse Ox Pulse Ox 05/13/20 23:35 37.3 C 95 20 143/82 H 100 05/13/20 21:10 37.7 C 91 20 139/65 99 99 - Problem List & Annotations (1) Comfort measures only status SNOMED Code(s): 55847060654149 Code(s): Z51.5 - ENCOUNTER FOR PALLIATIVE CARE Status: Acute Current Visit: Yes (2) Palliative care patient SNOMED Code(s): 449677893, 861607108 Code(s): Z51.5 - ENCOUNTER FOR PALLIATIVE CARE Status: Acute Current Visit: Yes (3) E coli bacteremia SNOMED Code(s): 011191932701 Code(s): R78.81 - BACTEREMIA; B96.20 - UNSP ESCHERICHIA COLI THE CAUSE OF DISEASES CLASSD ELSWHR Status: Acute Current Visit: Yes (4) Septic shock SNOMED Code(s): 03210424 Code(s): A41.9 - SEPSIS, UNSPECIFIED ORGANISM; R65.21 - SEVERE SEPSIS WITH SEPTIC SHOCK Status: Acute Current Visit: Yes (5) Acute on chronic renal failure SNOMED Code(s): 847843943 Code(s): N17.9 - ACUTE KIDNEY FAILURE, UNSPECIFIED; N18.9 - CHRONIC KIDNEY DISEASE, UNSPECIFIED Status: Acute Current Visit: Yes Qualifiers: Acute renal failure type: unspecified Chronic kidney disease stage: stage 3 (moderate) Chronic kidney disease stage 3 subtype: unspecified whether 3a or 3b Qualified Code(s): N17.9 - Acute kidney failure, unspecified; N18.30 - Chronic kidney disease, stage 3 unspecified (6) COVID-19 SNOMED Code(s): 780061686 Code(s): U07.1 - COVID-19 Status: Acute Current Visit: Yes - Problem List Review Problem List Initiated/Reviewed/Updated: Yes - Assessment Assessment:: 80 yo female who is hospital day #7 for septic shock secondary to E. coli bacteremia, also with COVID-19 infection. She has not responded to antibiotics and fluids in terms of level of alertness, despite improvements noted in labs. - Plan Plan:: #1 Comfort measures only status #2 Palliative Care patient #3 E coli bacteremia #4 Septic Shock #5 Acute on Chronic Renal Failure #6 COVID-19 - Labs are improved this morning; however, patient's mentation has not changed and she is now quite edematous. - Therefore, discussed with family that we are not seeing improvements with the fluids and the antibiotics. Would have expected some improvement with the ceftriaxone by now since the E. coli is proven susceptible to this and we have not seen this either. - My recommendation is to discontinue fluids today given potential for increasing harm given the already visible fluid retention as well as the fluid sensitive nature of COVID. We discussed the limited perceived benefit of continuing antibiotics as well. The patient's son is agreeable to d/c fluids and antibiotics. He voices goals to just keep her comfortable. Discussed with her granddaughter as well who also voices understanding and agreement. - Therefore, all interventions aimed for life prolongation will be discontinued today. Will only continue medications for comfort. - Based on her current labs and mental status, I would expect her to pass away in the next 24 hours. Therefore, there is limited benefit to transferring her back to the [facility] in light of that expectation. She also will not be transferred to a higher level of care given no indication for this. If she does not pass away over the weekend, will revisit transfer back to the care center next week. - Will d/c vitals as well. - My condolences offered in advance to this patient's family.
[2020-05-14] MEDS: Morphine Oral Concentrate 20 MG/ML 30 ML Bottle PO PRN ×3 (08:41→13:11)
[2020-05-14] MEDS: Insulin Glarg,Human.Rec.Analog 100 Unit/ML SUBCUT SCH (08:42)
[2020-05-14] MEDS: Ascorbic Acid 500 MG Tab PO SCH (08:43)
[2020-05-14] MEDS: Cholecalciferol (Vitamin D3) 10 MCG Tab PO SCH (08:43)
[2020-05-14] MEDS: cefTRIAXone 1 GM Vial IVPUSH SCH (08:43)
[2020-05-14] MEDS: Zinc (Zinc Gluconate) 50 MG Tab PO SCH (08:43)
[2020-05-14] MEDS: Atropine 1% Ophth Soln 5 ML BOTTLE SL PRN ×2 (08:44→22:49)
[2020-05-14] MEDS: LORazepam 2 MG/ML SDV IV PRN ×3 (11:18→22:48)
[2020-05-14] MEDS: Morphine 10 MG/ML SDV SUBCUT PRN ×4 (14:13→18:31)
[2020-05-14] MEDS: Sodium Chloride 0.9% 10 ML Syringe FLUSH PRN (22:50)
[2020-05-15] MEDS: Morphine 10 MG/ML SDV SUBCUT PRN ×2 (00:38→02:23)
[2020-05-15] MEDS: Atropine 1% Ophth Soln 5 ML BOTTLE SL PRN ×2 (00:50→04:04)
[2020-05-15] MEDS: LORazepam 2 MG/ML SDV IV PRN (03:57)
[2020-05-15] MEDS: Sodium Chloride 0.9% 10 ML Syringe FLUSH PRN (04:00)
--- NOTE | 2020-05-15 08:16 | PCM.SN.2 ---
- Free Text/Narrative Note: was notified by nursing that pt quietly at 7:15 am.
--- NOTE | 2020-05-15 09:21 | PCM.DCSUM1 ---
Discharge Summary - Hospital Course Brief History: Ms. Olivo is a 80 yo female who was admitted with septic shock after presenting to the ER hypotensive and tachycardic. - Discharge Data Discharge Date: 05/15/20 Discharge Disposition: 20 Condition: Good - Referral to Home Health Primary Care Physician: PCP None - Discharge Diagnosis/Problem(s) (1) Comfort measures only status SNOMED Code(s): 91796352346329 ICD Code: Z51.5 - ENCOUNTER FOR PALLIATIVE CARE Status: Acute Current Visit: Yes (2) Palliative care patient SNOMED Code(s): 279202715, 689132331 ICD Code: Z51.5 - ENCOUNTER FOR PALLIATIVE CARE Status: Acute Current Visit: Yes (3) E coli bacteremia SNOMED Code(s): 071279872308 ICD Code: R78.81 - BACTEREMIA; B96.20 - UNSP ESCHERICHIA COLI THE CAUSE OF DISEASES CLASSD ELSWHR Status: Acute Current Visit: Yes (4) Septic shock SNOMED Code(s): 53672085 ICD Code: A41.9 - SEPSIS, UNSPECIFIED ORGANISM; R65.21 - SEVERE SEPSIS WITH SEPTIC SHOCK Status: Acute Current Visit: Yes (5) Acute on chronic renal failure SNOMED Code(s): 167196379 ICD Code: N17.9 - ACUTE KIDNEY FAILURE, UNSPECIFIED; N18.9 - CHRONIC KIDNEY DISEASE, UNSPECIFIED Status: Acute Current Visit: Yes Qualifiers: Acute renal failure type: unspecified Chronic kidney disease stage: stage 3 (moderate) Chronic kidney disease stage 3 subtype: unspecified whether 3a or 3b Qualified Code(s): N17.9 - Acute kidney failure, unspecified; N18.30 - Chronic kidney disease, stage 3 unspecified (6) COVID-19 SNOMED Code(s): 482740506 ICD Code: U07.1 - COVID-19 Status: Acute Current Visit: Yes - Patient Summary/Data Operative Procedure(s) Performed: none Complications: none Consults: Consultations 05/08/20 13:15 Consult to Case Management/Property Coordinator [CONS] Routine 05/12/20 17:13 Consult to Speech Language Pathology [RADIOGRAPHER Evaluation and Treatment] [CONS] Routine Recommended Follow-up Testing/Procedures: none Planned Operative Procedure(s) after DC: none Hospital Course: The patient had a positive COVID test at the assisted prior to ER arrival. She was evaluated in the ER and started on IV fluids. Her septic shock was initially presumed to be secondary to COVID-19. Upon discussions with her family, they elected to proceed with a comfort cares approach but wanted her to remain at [facility] rather than return to [facility]. Therefore, she was treated with vitamin D, vitamin C, and zinc as well as medications for comfort. Her blood cultures subsequently became positive for gram negative rods, eventually confirmed to be E. coli. Therefore, she was then started on IV antibiotics and IV fluids. While her labs and vitals improved/stabilized, she did not clinically improve after a few days of fluids and antibiotics despite confirmation that her E. coli was susceptible to the ceftriaxone she was on. In fact, her mentation worsened. Therefore, further conversations were held with the patient's son and granddaughter and the decision was made to discontinue the fluids and antibiotics. She was again transitioned to full comfort cares as of yesterday and this morning peacefully with [facility] nursing staff at bedside. - Discharge Plan *PRESCRIPTION DRUG MONITORING PROGRAM REVIEWED*: Not Applicable *COPY OF PRESCRIPTION DRUG MONITORING REPORT IN PATIENT RASHEED: Not Applicable Home Medications: Home Meds Aspirin 81 mg PO DAILY 05/18/19 [History] Insulin Aspart [NovoLOG] 300 unit SQ ASDIRECTED PRN 05/18/19 [History] Insulin Degludec [Tresiba] 75 unit SQ DAILY 05/18/19 [History] Levothyroxine 125 mcg PO ACBREAKFAST 05/18/19 [History] Loperamide HCl [Anti-Diarrheal] 2 mg PO ASDIRECTED PRN 05/18/19 [History] Losartan Potassium 100 mg PO DAILY 05/18/19 [History] Multivitamin [Multi-Vitamin Daily] 1 each PO DAILY 05/18/19 [History] Omeprazole 20 mg PO DAILY 05/18/19 [History] Pravastatin [Pravachol] 40 mg PO DAILY 05/18/19 [History] Sertraline HCl 100 mg PO DAILY 05/18/19 [History] guaiFENesin [Cough Syrup] 10 ml PO Q4H PRN 05/18/19 [History] metFORMIN HCl [Metformin HCl] 500 mg PO DAILY 05/18/19 [History] Forms: ED Department Discharge Referrals: PCP,None [Primary Care Provider] - - Discharge Summary/Plan Comment DC Time >30 min.: No - General Info Subjective Update: Patient not seen today. - Patient Data Vitals - Most Recent: Last Vital Signs Temp 37.3 C 05/13/20 23:35 Pulse 95 05/13/20 23:35 Resp 20 05/13/20 23:35 BP 143/82 H 05/13/20 23:35 Pulse Ox 100 05/13/20 23:35 Weight - Most Recent: 76.657 kg I&O - Last 24 hours: Intake & Output 05/14/20 05/15/20 05/15/20 22:59 06:59 14:59 Output Total 1400 300 Balance -1400 -300 Med Orders - Current: Current Medications Acetaminophen (Tylenol) 650 mg RECTAL Q4H PRN PRN Reason: Pain/Fever Last Admin: 05/09/20 10:30 Dose: 650 mg Documented by: Atropine Sulfate (Atropine 1% Ophth Soln) 0 ml SL Q2H PRN PRN Reason: Copius Secretions Last Admin: 05/15/20 04:04 Dose: 0.33 ml Documented by: Lidocaine HCl (Xylocaine 2% Viscous) 5 ml PO Q4H PRN PRN Reason: Pain Last Admin: 05/14/20 11:18 Dose: 5 ml Documented by: Lorazepam (Ativan) 1 mg IV Q4H PRN PRN Reason: Restlessness or Anxiety Last Admin: 05/15/20 03:57 Dose: 1 mg Documented by: Morphine Sulfate (Morphine) 5 mg SUBCUT Q1H PRN PRN Reason: pain/shortness of breath Last Admin: 05/15/20 02:23 Dose: 5 mg Documented by: Sodium Chloride (Saline Flush) 10 ml FLUSH ASDIRECTED PRN PRN Reason: Keep Vein Open Last Admin: 05/15/20 04:00 Dose: 10 ml Documented by: Discontinued Medications Acetaminophen (Tylenol) 650 mg PO Q4H PRN PRN Reason: Fever Greater Than 101 Acetaminophen (Tylenol) 650 mg RECTAL Q6H PRN PRN Reason: Pain/Fever Ascorbic Acid (Vitamin C) 1,000 mg PO DAILY [facility] Last Admin: 05/08/20 14:03 Dose: Not Given Documented by: Ascorbic Acid (Vitamin C) 1,000 mg PO BID [facility] Last Admin: 05/14/20 08:43 Dose: Not Given Documented by: Ceftriaxone Sodium (Rocephin) 1 gm IVPUSH ONETIME ONE Stop: 05/08/20 11:21 Last Admin: 05/08/20 11:30 Dose: 1 gm Documented by: Ceftriaxone Sodium (Rocephin) 1 gm IVPUSH DAILY [facility] Stop: 05/16/20 23:00 Last Admin: 05/14/20 08:43 Dose: Not Given Documented by: Cholecalciferol (Vitamin D3) 50 mcg PO DAILY [facility] Last Admin: 05/08/20 14:02 Dose: Not Given Documented by: Cholecalciferol (Vitamin D3) 10 mcg PO DAILY [facility] Last Admin: 05/14/20 08:43 Dose: Not Given Documented by: Dexamethasone (Decadron) 6 mg IVPUSH Q24H [facility] Last Admin: 05/08/20 13:59 Dose: 6 mg Documented by: Dextrose/Water (Dextrose 50% In Water) 50 ml IV ASDIRECTED PRN PRN Reason: Hypoglycemia Enoxaparin Sodium (Lovenox) 30 mg SUBCUT Q12H [facility] Last Admin: 05/08/20 15:27 Dose: Not Given Documented by: Sodium Chloride (Normal Saline) 1,000 mls @ 1,000 mls/hr IV ONETIME ONE Stop: 05/08/20 12:20 Last Admin: 05/08/20 11:30 Dose: 1,000 mls/hr Documented by: Sodium Chloride (Normal Saline) 1,000 mls @ 50 mls/hr IV ASDIRECTED [facility] Last Admin: 05/08/20 13:58 Dose: 50 mls/hr Documented by: Lactated Ringer's (Ringers, Lactated) 1,000 mls @ 1,000 mls/hr IV BOLUS [facility] Last Admin: 05/08/20 14:33 Dose: 1,000 mls/hr Documented by: Sodium Chloride (Normal Saline) 1,000 mls @ 150 mls/hr IV ASDIRECTED [facility] Last Admin: 05/13/20 07:23 Dose: 150 mls/hr Documented by: Sodium Chloride (Sodium Chloride 0.45%) 1,000 mls @ 100 mls/hr IV ASDIRECTED [facility] Sodium Bicarbonate 50 meq/ (Sodium Chloride) 1,050 mls @ 100 mls/hr IV .[id number] [facility] Stop: 05/13/20 23:44 Last Admin: 05/13/20 14:10 Dose: 100 mls/hr Documented by: Sodium Bicarbonate 50 meq/ (Sodium Chloride) 1,050 mls @ 100 mls/hr IV ASDIRECTED [facility] Stop: 05/14/20 12:30 Last Admin: 05/14/20 02:18 Dose: 100 mls/hr Documented by: Insulin Glargine (Lantus) 5 unit SUBCUT DAILY [facility] Last Admin: 05/14/20 08:42 Dose: Not Given Documented by: Morphine Sulfate (Morphine 20 Mg/Ml Soln) 5 mg PO Q1H PRN PRN Reason: Pain (severe 7-10) Last Admin: 05/14/20 13:11 Dose: 5 mg Documented by: Sodium Bicarbonate (Sodium Bicarbonate 8.4%) 50 meq IVPUSH ONETIME ONE Stop: 05/13/20 12:57 Last Admin: 05/13/20 13:19 Dose: Not Given Documented by: Sodium Bicarbonate (Sodium Bicarbonate 8.4%) 50 meq IVPUSH ONETIME ONE Stop: 05/13/20 16:35 Last Admin: 05/14/20 02:18 Dose: 50 meq Documented by: Zinc Gluconate (Zinc) 200 mg PO DAILY [facility] Last Admin: 05/08/20 14:02 Dose: Not Given Documented by: Zinc Gluconate (Zinc) 200 mg PO DAILY [facility] Last Admin: 05/14/20 08:43 Dose: Not Given Documented by:
== END 2020-05-15 07:15 | disposition expired | DRG 871 ==
LOC: VM.ED 10:23 → VM.MS 11:34 → UNDOADMIN 13:06 → VM.MS 13:06 → UNDODISIN 05-15 07:15
PROVIDERS: ADMIT Nurse Practitioner Family; ATTEND Family Medicine
PROC: 8E0ZXY6 Isolation (ICD-10-PCS; principal; 2020-05-08)
DX: A41.9 Sepsis, unspecified organism (principal); A41.51 Sepsis due to Escherichia coli [E. coli]; J18.9 Pneumonia, unspecified organism; R65.20 Severe sepsis without septic shock; R65.21 Severe sepsis with septic shock; U07.1 COVID-19; I10 Essential (primary) hypertension; J96.01 Acute respiratory failure with hypoxia; N17.9 Acute kidney failure, unspecified; Z86.73 Personal history of transient ischemic attack (TIA), and cerebral infarction without residual deficits; I69.354 Hemiplegia and hemiparesis following cerebral infarction affecting left non-dominant side; E87.2 Acidosis; E11.9 Type 2 diabetes mellitus without complications; A41.89 Other specified sepsis; Z66 Do not resuscitate; Z51.5 Encounter for palliative care; E87.5 Hyperkalemia; N18.30 Chronic kidney disease, stage 3 unspecified; I12.9 Hypertensive chronic kidney disease with stage 1 through stage 4 chronic kidney disease, or unspecified chronic kidney disease; E78.2 Mixed hyperlipidemia; E11.22 Type 2 diabetes mellitus with diabetic chronic kidney disease; F41.9 Anxiety disorder, unspecified; T14.8XXA Other injury of unspecified body region, initial encounter; F32.9 Major depressive disorder, single episode, unspecified; E03.9 Hypothyroidism, unspecified; Z96.643 Presence of artificial hip joint, bilateral; E78.00 Pure hypercholesterolemia, unspecified; K21.9 Gastro-esophageal reflux disease without esophagitis; H35.30 Unspecified macular degeneration; E11.65 Type 2 diabetes mellitus with hyperglycemia; D69.6 Thrombocytopenia, unspecified; Z99.81 Dependence on supplemental oxygen; Z79.82 Long term (current) use of aspirin; Z79.4 Long term (current) use of insulin; Z79.890 Hormone replacement therapy; Z79.899 Other long term (current) drug therapy; Z88.0 Allergy status to penicillin; Z88.8 Allergy status to other drugs, medicaments and biological substances
CPT/HCPCS: 71045; 80053; 83605; 83880; 84145; 84484; 85025; 85610; 87040; 87077; 87186; 93005; 96374; 99284; 99285; J0696; J7030; 36415; 51702; 80048; 81001; 82962; 87086; A9270-GY; J1100; J1815-GY; J2060; J2270; J7120